=== PATIENT | male | born 1935 ===

== ENCOUNTER 2017-11-02 16:39 | Emergency (ER) | payer MEDICARE ==
[2017-11-02 17:37] LABS: VENOUS BLOOD GAS BASE EXCESS 3.5 mmol/L (0.0-2.0); VENOUS BLOOD GAS PCO2 40 mmHg (40-60); VENOUS BLOOD GAS PO2 30 mm/Hg (30-55); VENOUS BLOOD PH 7.45 (7.32-7.43)
[2017-11-02 17:47] LABS: BASO # 0.1 K/uL (0.0-0.2); BASO % 0.8 % (0.0-2.0); EOS # 0.2 K/uL (0.0-0.7); EOS % 2.9 % (0.0-4.0); HEMOGLOBIN 7.9 g/dL (12.0-18.0); LYMPH # 0.6 K/uL (1.0-4.3); LYMPH % 7.4 % (20.0-40.0); MEAN CELL VOLUME 79.4 fl (80.0-94.0); MEAN CORPUSCULAR HEMOGLOBIN 24.3 pg (27.0-31.0); MEAN CORPUSCULAR HGB CONC 30.6 g/dL (33.0-37.0); MEAN PLATELET VOLUME 7.9 fl (7.2-11.7); MONO # 0.6 K/uL (0.0-0.8); MONO % 7.5 % (0.0-10.0); NEUT # 6.7 K/uL (1.8-7.0); NEUT % 81.4 % (50.0-75.0); PLATELET COUNT 207 K/uL (130-400); RBC 3.26 Mil/uL (4.40-5.90); RED CELL DISTRIBUTION WIDTH 28.8 % (11.5-14.5); WHITE BLOOD COUNT 8.3 K/uL (4.8-10.8)
[2017-11-02 17:52] LABS: INR 1.4 (0.9-1.2); PROTHROMBIN TIME 15.1 Seconds (9.8-13.1)
[2017-11-02 17:53] LABS: PARTIAL THROMBOPLASTIN TIME 32.9 Seconds (25.6-37.1)
[2017-11-02 17:55] LABS: BLOOD UREA NITROGEN 15 mg/dl (9-20); CALCIUM 8.6 mg/dL (8.4-10.2); GFR AFRICAN-AMERICAN > 60; GFR NON-AFRICAN AMERICAN > 60
[2017-11-02 18:03] LABS: B-TYPE NATRIURETIC PEPTIDE 3740 pg/ml (0-900)
--- NOTE | 2017-11-02 18:03 | ED PDOC ---
HPI: Chest Pain Time Seen by Provider: 11/02/17 16:58 Chief Complaint (Nursing): Pacemaker Problem Chief Complaint (Provider): Pacemaker Problem History Per: Patient History/Exam Limitations: no limitations Onset/Duration Of Symptoms: Hrs (x1) Current Symptoms Are (Timing): Still Present Additional Complaint(s): Bernardo Lind is a 82 year old male with a past medical history of coronary artery disease, hypertension, CABG, and pacemaker placement who is presenting to the ED with complaints of swelling to the pacemaker site, noted one hour prior to arrival. Patient states that he was sitting watching a baseball game and noticed swelling on side of pacemaker site on the left chest. He reports that his pacemaker was placed [address] Hill at [facility]. Patient denies any pain, fever, cough, chest pain, shortness of breath , shock, or palpitations. He offers no other medical complaints at this time. PMD: Dr. Medina Watch Repair Technician: Dr. Leach - Risk Factors TAD Risk Factors: Pos: Hypertension Past Medical History Reviewed: Historical Data, Nursing Documentation, Vital Signs Vital Signs: Last Vital Signs Temp 98.1 F 11/02/17 22:22 Pulse 70 11/02/17 22:22 Resp 16 11/02/17 22:22 BP 144/75 11/02/17 22:22 Pulse Ox 94 L 11/02/17 22:22 - Medical History PMH: Cardia Arrhythmia, HTN, Hypercholesterolemia - Surgical History Surgical History: CABG, Pacemaker - Family History Family History: States: Unknown Family Hx - Social History Current smoker - smoking cessation education provided: No Alcohol: None Drugs: Denies - Home Medications Home Medications: Ambulatory Orders Medication Instructions Recorded Clindamycin [Cleocin] 300 mg PO TID 10 Days cap 11/02/17 - Allergies Allergies/Adverse Reactions: Allergies Allergy/AdvReac Type Severity Reaction Status Date / Time Sulfa (Sulfonamide Allergy RASH Verified 11/02/17 16:45 Antibiotics) Review of Systems ROS Statement: Except As Marked, All Systems Reviewed And Found Negative Constitutional: Negative for: Fever Cardiovascular: Positive for: Edema (to pacemaker site). Negative for: Chest Pain, Palpitations, Other (shock) Respiratory: Negative for: Cough, Shortness of Breath Physical Exam - Reviewed Nursing Documentation Reviewed: Yes Vital Signs Reviewed: Yes - Physical Exam Appears: Positive for: Non-toxic, No Acute Distress Head Exam: Positive for: ATRAUMATIC, NORMAL INSPECTION, NORMOCEPHALIC Skin: Positive for: Normal Color, Warm, DRY Eye Exam: Positive for: EOMI, Normal appearance, PERRL ENT: Positive for: Normal ENT Inspection Neck: Positive for: Normal, Painless ROM Cardiovascular/Chest: Positive for: Regular Rate, Rhythm, Chest Non Tender, Edema (to pacemkaer site), Other (pacemaker noted, no discharge or erythema). Negative for: Murmur Respiratory: Positive for: Normal Breath Sounds. Negative for: Respiratory Distress Gastrointestinal/Abdominal: Positive for: Normal Exam, Soft. Negative for: Tenderness Back: Positive for: Normal Inspection Extremity: Positive for: Normal ROM. Negative for: Deformity, Swelling Neurologic/Psych: Positive for: Alert, Oriented. Negative for: Motor/Sensory Deficits - Laboratory Results Result Diagrams: 11/02/17 17:30 11/02/17 17:30 - ECG O2 Sat by Pulse Oximetry: 94 (RA) Medical Decision Making Medical Decision Making: Time: 17:18 Impression: swelling of pacemaker site, fever Differentials: infection of pacemaker site, pneumonia, delayed post-operative bleeding Plan: --Blood Type and Screen --Venuous Blood Gas, Shock Panel --EKG --B-Type Natriuretic Peptide --BMP --CBC --PTT --Coag --Chest X-Ray --Blood Culture Rule out pneumonia and sepsis. Fever noted upon arrival to the ED. 19:00 Patient is signed out to Dr. Denson pending chest x-Ray, reevaluation, and final disposition. Scribe Attestation: Documented by Nuha Mendez, acting as a scribe for Adrian Armendariz MD. Provider Scribe Attestation: All medical record entries made by the Scribe were at my direction and personally dictated by me. I have reviewed the chart and agree that the record accurately reflects my personal performance of the history, physical exam, medical decision making, and the department course for this patient. I have also personally directed, reviewed, and agree with the discharge instructions and disposition. Disposition - Clinical Impression Clinical Impression: Swelling - Patient ED Disposition Is Patient to be Admitted: No Doctor Will See Patient In The: Office Counseled Patient/Family Regarding: Studies Performed, Diagnosis, Need For Followup - Disposition Referrals: Jeff Leach MD [Staff Provider] - Stanton Medina MD [Staff Provider] - Dickson Hill MD [Medical Doctor] - Disposition: Routine/Home Disposition Time: 19:00 Condition: STABLE Additional Instructions: Por favor, siga con el Dr. Medina el . Si desarrolla fiebre talon, empeoramiento de la hinchazn, enrojecimiento o cualquier otro sntoma preocupante, regrese de inmediato a la viraj de emergencias. Prescriptions: Clindamycin [Cleocin] 300 mg PO TID 10 Days cap Instructions: Swelling Print Language: [place] CITIZ[place] Patient Signed Over To: Xu Denson
[2017-11-02 18:21] LABS: ANISOCYTOSIS SLIGHT; BANDS 1 % (0-2); BASOPHIL 2 % (0-2); EOSINOPHIL 2 % (0-7); HYPOCHROMIC SLIGHT; LYMPHOCYTE 4 % (20-50); MICROCYTOSIS SLIGHT; MONOCYTE 3 % (0-10); NEUTROPHIL 88 % (42-75); PLATELET ESTIMATE NORMAL (NORMAL); POIKILOCYTOSIS SLIGHT; TARGET CELLS SLIGHT; TOTAL CELLS COUNTED 100
[2017-11-02 18:22] LABS: LARGE PLATELETS PRESENT; OVALOCYTES SLIGHT; SPHEROCYTES SLIGHT; TEARDROP CELLS SLIGHT
[2017-11-02] MEDS ORDERED: Iohexol 300 100 ML IJ ONE (19:24)
[2017-11-02 20:23] VITALS: RESP 16
--- NOTE | 2017-11-02 21:05 | ED PDOC ---
"- Laboratory Results Result Diagrams: 11/02/17 17:30 11/02/17 17:30 - ECG O2 Sat by Pulse Oximetry: 95 (RA) Medical Decision Making Medical Decision Making: Time: 19:00 Patient endorsed to me by Dr. Armendariz pending CT and disposition. 22:00 EXAM: CT Chest With Intravenous Contrast CLINICAL HISTORY: 82 years old, male; Signs and symptoms; Other: Swelling at pacemaker site; Prior surgery; Surgery date: <1 month; Surgery type: Pacemaker insertion 8 days ago. Cabg; Additional info: Chest wall swelling pacemaker site TECHNIQUE: Axial computed tomography images of the chest with intravenous contrast. All CT scans at this facility use at least one of these dose optimization techniques: automated exposure control; mA and/or kV adjustment per patient size (includes targeted exams where dose is matched to clinical indication); or iterative reconstruction. MIP reconstructed images were created and reviewed. Coronal and sagittal reformatted images were created and reviewed. CONTRAST: 90 mL of [id number] administered intravenously. COMPARISON: CR - CHEST TWO VIEWS (PA/LAT) 2017-11-02 17:16 FINDINGS: Lungs: The central airways are patent. Diffuse smooth interlobular septal thickening. Diffuse peribronchial vascular groundglass opacities. Trace compressive atelectasis within the right lower lobe dependently. As you linear left upper lobe opacity likely representing subsegmental atelectasis or scarring. 2 mm right upper lobe solid pulmonary nodule of (axial image 39). Pleural space: Moderate-sized right and small left pleural effusions. No pneumothorax. Heart: Left atrial enlargement. Status post coronary artery bypass graft. Right atrium and right ventricle. No significant pericardial effusion. Thyroid: Heterogeneous thyroid gland with 9 mm hypodense nodule within the left thyroid lobe. Bones/joints: Median sternotomy wires. Osseous demineralization. Diffuse thoracic spondylosis. No acute osseous abnormality. No dislocation. Soft tissues: Mild soft tissue swelling anterior to the left chest wall battery pack without discrete fluid collection. Vasculature: Enlargement of the main pulmonary artery measuring 3.6 cm in transverse axial dimension. No filling defects within the central, segmental, or visualized subsegmental pulmonary arteries. The aorta demonstrates moderate atherosclerotic calcification. SHAINA ZHU | Preliminary Radiology Report PATIENT SERVICES COORDINATOR (QA) DISCREPANCY? If there is a discrepancy between the preliminary and final interpretation, please notify [facility] via [email or web address]. If you do not have access to our QA portal, call our QA team at [phone] CONFIDENTIALITY STATEMENT This report is intended only for the use of the referring physician, and only in accordance with law, If you received this in error, call [phone] Page 2 of 2 Lymph nodes: Multiple prominent mediastinal lymph nodes are present measuring up to 13 mm in the right paratracheal region and 19 mm in the subcarinal region. Prominent hilar lymph nodes are also present measuring up to 10 mm on the right and 8mm on the left. Liver: The liver is normal in appearance. Gallbladder and bile ducts: Large lamellated gallstones within the imaged gallbladder. Pancreas: There is diffuse, benign fatty infiltration of the pancreas. Spleen: The spleen is normal. Adrenals: Nodular thickening of the both adrenal glands. 2.0 cm fat attenuation lesion within the left adrenal gland consistent with a myelolipoma. Kidneys and ureters: 10 mm stone within the imaged posterior left renal pelvis. IMPRESSION: 1. Pacemaker left chest wall battery pack and surrounding soft tissue swelling. No large associated fluid collection. This could represent postprocedural edema or a small hematoma. 2. No pulmonary embolism. 3. Status post coronary artery bypass graft with extensive calcific atherosclerosis of the [place] coronary arteries. 4. Left atrium enlargement. 5. Moderate-sized right and small left pleural effusions. 6. Pulmonary parenchymal findings suggestive of cardiogenic pulmonary edema to include peribronchial vascular groundglass opacities in smooth interlobular septal thickening. 7. Right upper lobe solid pulmonary nodule measuring 2 mm. For low-risk patients , no follow-up is necessary. For high-risk patients (smoking history or other known risk factors) an optional chest CT at 12 months could be performed. 8. Enlargement of the main pulmonary artery suggestive of pulmonary hypertension. 9. Cholelithiasis. 10. Hypodense left thyroid nodule measuring 9 mm. No follow-up is necessary. 11. Nonspecific mediastinal adenopathy, likely reactive on the basis of the pulmonary edema and pleural effusions. 12. Nephrolithiasis with 10 mm stone within the imaged posterior left renal pelvis. 13. 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 14. Other chronic findings as detailed above. Thank you for allowing us to participate in the care of your patient. Dictated and Authenticated by: Wan Perez DO 11/02/2017 8:48 PM Eastern Time ([place] & [place]) Case was discussed with Dr. Leach who recommended consultation with Dr. Hill, duplication specialist, call was placed. Page was placed to Dr. Barry as well, primary care physician. Patient comfortable, vitals stable at this time. 10:10PM Case discussed with Dr. Barry who states that if patient is stable, can be discharged with PO ABx and to followup with him in the office on Saturday. All results explained to patient who verbalizes understanding, return precautions were given including high fevers, worsening swelling, erythema, or other concerning symptoms. Patient BP 150/90, afebrile, well appearing, affable and pleasant, steady gait. Discharged in good condition. Scribe Attestation: Documented by Nuha Mendez, acting as a scribe for Xu Denson MD. Provider Scribe Attestation: All medical record entries made by the Scribe were at my direction and personally dictated by me. I have reviewed the chart and agree that the record accurately reflects my personal performance of the history, physical exam, medical decision making, and the department course for this patient. I have also personally directed, reviewed, and agree with the discharge instructions and disposition. Disposition - Clinical Impression Clinical Impression: Swelling - POA Present On Arrival: None - Disposition Referrals: Stanton Medina MD [Staff Provider] - Dickson Hill MD [Medical Doctor] - Jeff Leach MD [Staff Provider] - Disposition: Routine/Home Disposition Time: 22:18 Condition: GOOD Additional Instructions: Por favor, siga con el Dr. Medina el . Si desarrolla fiebre talon, empeoramiento de la hinchazn, enrojecimiento o cualquier otro sntoma preocupante, regrese de inmediato a la viraj de emergencias. Prescriptions: Clindamycin [Cleocin] 300 mg PO TID 10 Days cap Instructions: Swelling Forms: [facility] (Mozambican) Print Language: VENEZUELAN"
[2017-11-02] MEDS ORDERED: Clindamycin ORAL SUSP 75 MG/5 ML PO STA (22:15)
[2017-11-02 22:24] VITALS: BP 144/75; PULSE 70; TEMP 98.1; O2SAT 94
--- NOTE | 2017-11-03 11:25 | CT ---
Date of service: 11/02/2017 PROCEDURE: CT Chest with contrast HISTORY: chest wall swelling pacemaker site COMPARISON: None. TECHNIQUE: Contiguous axial images were obtained through the chest with intravenous contrast enhancement. Sagittal and coronal reconstructions were performed. IV contrast: 90 mL Omnipaque 300 Radiation dose (DLP): 687.34 mGy-cm. This CT exam was performed using one or more of the following dose reduction techniques: Automated exposure control, adjustment of the mA and/or kV according to patient size, and/or use of iterative reconstruction technique. FINDINGS: LUNGS: Linear scar/ atelectasis right lower lobe and left upper lobe. Minimal right basilar compressive atelectasis secondary to pleural effusion. Vague patchy ground-glass opacity the diffusely common nonspecific. . Rule out pneumonia. Followup. MEDIASTINUM: Unremarkable thoracic aorta. No aneurysm or dissection. Normal size heart. Status post CABG. Main pulmonary artery unremarkable. No vascular congestion. No significant lymphadenopathy. 9 mm nodule in left lobe of thyroid. Recommend correlation with thyroid ultrasound examination. PLEURA: Small right pleural effusion. Trace left pleural effusion. No pneumothorax. BONES: No fracture. No destructive lesion. UPPER ABDOMEN: 2.3 cm left adrenal myelo lipoma measuring -58 Hounsfield units. No right adrenal mass. Cholelithiasis. No evidence of cholecystitis. Very mild perihepatic ascites. 2 mm left upper pole renal calculus. OTHER FINDINGS: Status post left pacemaker insertion in left anterior chest wall. There is mild enlargement of the left pectoralis major and pectoralis minor muscles. This may reflect edema or intramuscular hemorrhage. There is no patti hematoma or fluid collection identified. IMPRESSION: Left chest wall pacemaker with enlargement of left pectoralis major and minor muscles. This may reflect intramuscular hemorrhage but there is no patti hematoma identified. Small right pleural effusion and trace left pleural effusion. No focal consolidation. Diffuse patchy ground-glass opacity, nonspecific. Doubt cardiogenic pulmonary edema. . . Cholelithiasis. Left adrenal myelo lipoma. Left thyroid nodule. Correlate with ultrasound. Mild ascites. The preliminary findings for this examination were reported by [facility] at 8:48 p.m. on 11/02/2017. There is some discordance of this report with the preliminary findings.
--- NOTE | 2017-11-03 13:56 | CARD ---
APPROVED REPORT Date of service: 11/02/2017 EKG Measurement Heart [id number] <Conclusion> Normal sinus rhythm Right bundle branch block Left anterior fascicular block Bifascicular block Abnormal ECG
--- NOTE | 2017-11-03 16:03 | RAD ---
Date of service: 11/02/2017 HISTORY: pacemaker COMPARISON: No prior. TECHNIQUE: Chest PA and lateral FINDINGS: LUNGS: No active pulmonary disease. PLEURA: Small right pleural effusion. No left pleural effusion. No pneumothorax. CARDIOVASCULAR: Normal heart size. Permanent pacemaker. Sternotomy wires. Likely prior CABG. OSSEOUS STRUCTURES: No significant abnormalities. VISUALIZED UPPER ABDOMEN: Normal. OTHER FINDINGS: None. IMPRESSION: Small right pleural effusion. No infiltrate.
== END 2017-11-02 22:26 | disposition home or self-care (01) ==
LOC: H.ER 16:39
DX: R22.2 Localized swelling, mass and lump, trunk (principal); Z95.0 Presence of cardiac pacemaker; I25.10 Atherosclerotic heart disease of native coronary artery without angina pectoris; E04.1 Nontoxic single thyroid nodule; E78.00 Pure hypercholesterolemia, unspecified; I10 Essential (primary) hypertension; I25.810 Atherosclerosis of coronary artery bypass graft(s) without angina pectoris; N20.0 Calculus of kidney
CPT/HCPCS: 71046; 71260; 80048; 82803; 83880; 85025; 85610; 85730; 86850; 86900; 87040; 93005; 96374; 99283; J1940; Q9967

== ENCOUNTER 2017-11-07 17:19 | Inpatient (IN) | payer MEDICARE ==
--- NOTE | 2017-11-07 17:58 | RAD ---
Date of service: 11/07/2017 HISTORY: Severe anemia COMPARISON: 11/02/2017 FINDINGS: LUNGS: Pulmonary vascular congestion without focal pulmonary abnormality PLEURA: Stable right pleural effusion CARDIOVASCULAR: Cardiomegaly/mild CHF. Position/ configuration of pacemaker device: Satisfactory. OSSEOUS STRUCTURES: No significant abnormalities. VISUALIZED UPPER ABDOMEN: Normal. OTHER FINDINGS: None. IMPRESSION: Cardiomegaly/acute CHF. This represents a new finding compared to the prior chest radiograph
--- NOTE | 2017-11-07 18:03 | ED PDOC ---
HPI: General Adult Time Seen by Provider: 11/07/17 17:34 Chief Complaint (Nursing): Abnormal Labs Chief Complaint (Provider): Anemia History Per: Patient History/Exam Limitations: no limitations Onset/Duration Of Symptoms: Days (x1) Current Symptoms Are (Timing): Still Present Additional Complaint(s): 82 y/o male with a PMHx of arrhythmia, HTN, high cholesterol, CABG, and pacemaker presenting for evaluation of anemia. Patient was referred to a import customer service manager for mild anemia and had blood work taken yesterday. Patient states he saw the import customer service manager today who told him his hemoglobin is too low and he should present to the ER for evaluation. Patient reports dyspnea with exertion, but otherwise denies any chest pain, fainting episodes, near fainting episodes, melena, hematochezia, epistaxis, or dental bleeding. Patient was seen in this facility 5 days ago for evaluation of his pacemaker wound and at that time his hemoglobin was 7.9. Patient does not taken any blood thinners, but does taken Aspirin. He denies any fever, chills, and headache. He reports good appetite. PMD: Dr. Medina Generation Mechanic Helper: Dr. Jeff Leach Sleeve Ironer: Dr. Lolly Neri Past Medical History Reviewed: Historical Data, Nursing Documentation, Vital Signs Vital Signs: Last Vital Signs Temp 99.5 F 11/07/17 17:27 Pulse 63 11/07/17 21:11 Resp 18 11/07/17 21:34 BP 139/56 L 11/07/17 21:11 Pulse Ox 96 11/07/17 22:57 - Medical History PMH: Cardia Arrhythmia, HTN, Hypercholesterolemia - Surgical History Surgical History: CABG, Pacemaker - Family History Family History: States: Unknown Family Hx - Social History Current smoker - smoking cessation education provided: No Alcohol: None - Home Medications Home Medications: Ambulatory Orders Medication Instructions Recorded Clindamycin [Cleocin] 300 mg PO TID 10 Days cap 11/02/17 Albuterol Sulfate [Ventolin Hfa] 2 puff IH Q6 PRN 11/07/17 Aspirin [Ecotrin] 81 mg PO Q48H 11/07/17 Brimonidine Tartrate [Alphagan P 1 drop EACHEYE Q12 11/07/17 0.1 % Ophth] Ibuprofen [Motrin Tab] 600 mg PO BID PRN 11/07/17 Isosorbide Mononitrate [Imdur] 120 mg PO DAILY 11/07/17 Lisinopril/Hydrochlorothiazide 1 tab PO DAILY 11/07/17 [Lisinopril-Hctz 20-25 mg Tab] MetFORMIN [glucoPHAGE] 1,000 mg PO BID 11/07/17 Multivitamin/Iron/Folic Acid 1 tab PO DAILY 11/07/17 [Centrum Complete Multivit Tab] Omeprazole [Omeprazole] 20 mg PO BID 11/07/17 Rosuvastatin Calcium [Crestor] 10 mg PO DAILY 11/07/17 SITagliptin [Januvia] 100 mg PO DAILY 11/07/17 Tamsulosin [Flomax] 0.4 mg PO BID 11/07/17 Zolpidem [Ambien] 5 mg PO HS PRN 11/07/17 amLODIPine [Norvasc] 5 mg PO DAILY 11/07/17 - Allergies Allergies/Adverse Reactions: Allergies Allergy/AdvReac Type Severity Reaction Status Date / Time Sulfa (Sulfonamide Allergy RASH Verified 11/07/17 17:32 Antibiotics) Review of Systems ROS Statement: Except As Marked, All Systems Reviewed And Found Negative Constitutional: Negative for: Fever, Chills ENT: Negative for: Other (epistaxis, dental bleed) Respiratory: Positive for: SOB with Exertion Gastrointestinal: Negative for: Melena, Hematochezia Neurological: Negative for: Headache, Other (syncope) Physical Exam - Reviewed Nursing Documentation Reviewed: Yes Vital Signs Reviewed: Yes - Physical Exam Appears: Positive for: Well, No Acute Distress Skin: Positive for: Warm, Dry, Pallor Eye Exam: Positive for: EOMI, PERRL, Other (conjunctival pallor) ENT: Positive for: Pharynx Is (clear) Neck: Positive for: Painless ROM, Supple Cardiovascular/Chest: Positive for: Regular Rate, Rhythm, Other (pacemaker wound at left upper anterior chest wall is clean, dry, and intact). Negative for: Murmur Respiratory: Positive for: Normal Breath Sounds. Negative for: Wheezing Gastrointestinal/Abdominal: Positive for: Soft. Negative for: Tenderness, Mass , Distended, Guarding Rectal: Positive for: Rectal Tone Is: (normal), Other (RN at bedside during exam ). Negative for: Mass Extremity: Positive for: Normal ROM. Negative for: Deformity Lymphatic: Negative for: Adenopathy Neurologic/Psych: Positive for: Alert. Negative for: Motor/Sensory Deficits - Laboratory Results Result Diagrams: 11/07/17 17:50 11/07/17 17:50 - ECG O2 Sat by Pulse Oximetry: 96 - Critical Care Total Time (In Min): 30 Documented Critical Care: Time excludes all time spent performint seperately billable procedures Medical Decision Making Medical Decision Makin:40 Impression: Anemia, mildly symptomatic. Differential diagnoses include, but are not limited to GI bleed, coagulopathy, hemolytic anemia, anemia of chronic disease, and renal failure. Plan: -Blood type and screen -VBG shock panel -CXR -EKG -BNP -CMP -Ferritin -Folate -Iron & TBC -Troponin I -Vitamin B12 -Urine dipstick -CBC w/ differential -PTT/Pt -environmental monitoring specialist -IV Insertion -Reevaluation EKG: paced rhythm at 60 with appropriate discordance of T waves Accession No. : [id number] Patient Name / ID : AUDRA MONTAGUE / [id number] Exam Date : 11/07/2017 17:38:01 ( Approved ) Study Comment : Sex / Age : M / 82Y Creator : Carlos Walker MD Dictator : Carlos Walker MD Buyer Internship : Urology Surgeon : Carlos Walker MD Approver2 : 17:56 Date of service: 11/07/2017 HISTORY: Severe anemia COMPARISON: 11/02/2017 FINDINGS: LUNGS: Pulmonary vascular congestion without focal pulmonary abnormality PLEURA: Stable right pleural effusion CARDIOVASCULAR: Cardiomegaly/mild CHF. Position/ configuration of pacemaker\AICD device: Satisfactory. OSSEOUS STRUCTURES: No significant abnormalities. VISUALIZED UPPER ABDOMEN: Normal. OTHER FINDINGS: None. IMPRESSION: Cardiomegaly/acute CHF. This represents a new finding compared to the prior chest radiograph 20:02 Hemocult is positive for blood. Discussed with Dr. Medina who reports that patient had similar presentation in the past and is noncompliant with follow up with GI and hematology. Patient has had blood transfusions and iron transfusions in the past despite patient denying this. Discussed with Dr. Aguero who is also familiar with the patient who advises Protonix 40 twice a day in addition to transfusion. Patient will likely have endoscopy tomorrow. Discussed with Dr. Angulo, hematology, who will come and see patient tomorrow morning as well. Discussed with Dr. Alas, hospitalist, for ICU placement for severe anemia and GI bleed in setting of severe cardiac disease. Discussed with patient and findings and plan of care. Scribe Attestation: Documented by Tyrell Conde, acting as a scribe for Arleth Solis MD. Provider Scribe Attestation: All medical record entries made by the Scribe were at my direction and personally dictated by me. I have reviewed the chart and agree that the record accurately reflects my personal performance of the history, physical exam, medical decision making, and the department course for this patient. I have also personally directed, reviewed, and agree with the discharge instructions and disposition. Disposition - Clinical Impression Clinical Impression: GI bleed, Anemia, Iron deficiency anemia - Patient ED Disposition Is Patient to be Admitted: Yes - Disposition Disposition Time: 18:30 Condition: CRITICAL - Pt Status Changed To: Hospital Disposition Of: Inpatient - Admit Certification Admit to Inpatient:: After my assessment, the patient will require hospitalization for at least two midnights. This is because of the severity of symptoms shown, intensity of services needed, and/or the medical risk in this patient being treated as an outpatient. - POA Present On Arrival: None
[2017-11-07 18:17] LABS: VENOUS BLOOD GAS BASE EXCESS 2.6 mmol/L (0.0-2.0); VENOUS BLOOD GAS PCO2 41 mmHg (40-60); VENOUS BLOOD GAS PO2 23 mm/Hg (30-55); VENOUS BLOOD PH 7.43 (7.32-7.43)
[2017-11-07 18:21] LABS: INR 1.4 (0.9-1.2); IRON 13 ug/dL (49-181); PARTIAL THROMBOPLASTIN TIME 31.4 Seconds (25.6-37.1); PROTHROMBIN TIME 15.2 Seconds (9.8-13.1)
[2017-11-07 18:27] LABS: BASO # 0.1 K/uL (0.0-0.2); BASO % 0.9 % (0.0-2.0); EOS # 0.1 K/uL (0.0-0.7); EOS % 2.4 % (0.0-4.0); LYMPH # 0.7 K/uL (1.0-4.3); LYMPH % 11.9 % (20.0-40.0); MEAN CELL VOLUME 80.2 fl (80.0-94.0); MEAN CORPUSCULAR HEMOGLOBIN 24.9 pg (27.0-31.0); MEAN PLATELET VOLUME 8.5 fl (7.2-11.7); MONO # 0.5 K/uL (0.0-0.8); MONO % 8.1 % (0.0-10.0); NEUT # 4.7 K/uL (1.8-7.0); NEUT % 76.7 % (50.0-75.0); NRBC % 1.1 % (0.0-0.0); RBC 2.06 Mil/uL (4.40-5.90); RED CELL DISTRIBUTION WIDTH 27.6 % (11.5-14.5); WHITE BLOOD COUNT 6.1 K/uL (4.8-10.8)
[2017-11-07 18:30] LABS: % IRON SATURATION 4 % (20-55); TOTAL IRON BINDING CAPACITY 312 ug/dL (250-450)
[2017-11-07 18:35] LABS: B-TYPE NATRIURETIC PEPTIDE 3480 pg/ml (0-900)
[2017-11-07 18:36] LABS: HEMOGLOBIN 5.1 g/dL (12.0-18.0)
[2017-11-07 18:58] LABS: ALB/GLOB RATIO 1.1 (1.0-2.1); ALBUMIN 3.3 g/dL (3.5-5.0); ALT/SGPT 31 U/L (21-72); AST/SGOT 35 U/L (17-59); BLOOD UREA NITROGEN 24 mg/dl (9-20); CALCIUM 8.2 mg/dL (8.4-10.2); FERRITIN 93.4 ng/Ml (17.9-464); GFR NON-AFRICAN AMERICAN 58
--- NOTE | 2017-11-07 20:24 | CP.PCM.CON ---
History of Present Illness - History of Present Illness History of Present Illness: Reason for Consult: severe acute blood loss anemia HPI: 82 PMH HTN, HLD, DM, BPH, arrhythmia, PPM, CAD s/p CABG, presents from his hematologists office for low H/H, now 5.16.5. 5 days ago he was evaluated here at [facility], Hgb 7.9. He admits to some dyspnea on exertion, no cp, lightheadedness, near/syncope, melena, hematochezia, hematemesis. Pt on ASA [id number], and is currently awake, alert, oriented. Per his PCP, he has had several episodes of GIB, however pt denies this. H/H 5./16.5, CXR: cardiomegaly and acute CHF. Elevated BUN, HD stable, BP 139/61, HR 61, afebrile , no acute distress. In ED, 2 units PRBC ordered with lasix in between, Hematology and GI consulted, Drs. Angulo and Mora. Plan for EGD tomorrow, protonix 40 IVP Q12. NPO, IV hydralazine for BP control. ISS for glucose control. ROS: per HPI all other systems reviewed and negative PMD: Dr. Medina Book Trimmer: Dr. Jeff Leach Bead Wire Insulator: Dr. Lolly Neri Past Patient History - Past Social History Alcohol: None - CARDIAC Hx Cardia Arrhythmia: Yes Hx Hypercholesterolemia: Yes Hx Hypertension: Yes Hx Pacemaker: Yes - ENDOCRINE/METABOLIC Hx Diabetes Mellitus Type 2: Yes - PSYCHIATRIC Hx Substance Use: No - SURGICAL HISTORY Hx Coronary Artery Bypass Graft: Yes Meds Allergies/Adverse Reactions: Allergies Allergy/AdvReac Type Severity Reaction Status Date / Time Sulfa (Sulfonamide Allergy RASH Verified 11/07/17 17:32 Antibiotics) - Medications Medications: Current Medications Pantoprazole Sodium (Protonix Inj) 40 mg IVP Q12 PRATIK Physical Exam - Constitutional Appears: Non-toxic, No Acute Distress - Head Exam Head Exam: ATRAUMATIC, NORMOCEPHALIC - Eye Exam Eye Exam: EOMI, Normal appearance, PERRL - ENT Exam ENT Exam: Mucous Membranes Moist, Normal Oropharynx - Respiratory Exam Respiratory Exam: Clear to Auscultation Bilateral, NORMAL BREATHING PATTERN - Cardiovascular Exam Cardiovascular Exam: RRR, +S1, +S2 - GI/Abdominal Exam GI & Abdominal Exam: Normal Bowel Sounds, Soft. absent: Mass, Organomegaly, Tenderness - Extremities Exam Extremities exam: Positive for: normal capillary refill, pedal pulses present - Back Exam Back exam: absent: CVA tenderness (L), CVA tenderness (R) - Neurological Exam Neurological exam: Alert, Oriented x3 - Psychiatric Exam Psychiatric exam: Normal Affect, Normal Mood - Skin Skin Exam: Dry, Warm Results - Vital Signs Recent Vital Signs: Last Vital Signs Temp 99.5 F 11/07/17 17:27 Pulse 61 11/07/17 19:34 Resp 23 11/07/17 19:34 BP 139/61 11/07/17 19:34 Pulse Ox 96 11/07/17 20:04 - Labs Result Diagrams: 11/07/17 17:50 11/07/17 17:50 Labs: Laboratory Results - last 24 hr 11/07/17 11/07/17 11/07/17 17:50 17:50 17:50 WBC 6.1 RBC 2.06 L Hgb 5.1 L* D Hct 16.5 L MCV 80.2 MCH 24.9 L MCHC 31.0 L RDW 27.6 H Plt Count 271 MPV 8.5 Neut % (Auto) 76.7 H Lymph % (Auto) 11.9 L [place] % (Auto) 8.1 Eos % (Auto) 2.4 Baso % (Auto) 0.9 Neut # (Auto) 4.7 Lymph # (Auto) 0.7 L [place] # (Auto) 0.5 Eos # (Auto) 0.1 Baso # (Auto) 0.1 PT INR APTT pO2 VBG pH VBG pCO2 VBG HCO3 VBG Total CO2 VBG O2 Sat (Calc) VBG Base Excess VBG Potassium Glucose Lactate FiO2 Sodium 144 Potassium 3.8 Chloride 107 Carbon Dioxide 24 Anion Gap 17 BUN 24 H Creatinine 1.2 Est GFR ( Amer) > 60 Est GFR (Non-Af Amer) 58 Random Glucose 142 H Calcium 8.2 L Iron 13 L TIBC 312 % Saturation 4 L Ferritin 93.4 Total Bilirubin 0.5 AST 35 ALT 31 Alkaline Phosphatase 95 Troponin I 0.0340 NT-Pro-B Natriuret Pep 3480 H Total Protein 6.3 Albumin 3.3 L Globulin 3.1 Albumin/Globulin Ratio 1.1 Vitamin B12 325 Venous Blood Potassium Blood Type Antibody Screen Crossmatch BBK History Checked 11/07/17 11/07/17 11/07/17 17:50 17:50 17:52 WBC RBC Hgb Hct MCV MCH MCHC RDW Plt Count MPV Neut % (Auto) Lymph % (Auto) [place] % (Auto) Eos % (Auto) Baso % (Auto) Neut # (Auto) Lymph # (Auto) [place] # (Auto) Eos # (Auto) Baso # (Auto) PT 15.2 H INR 1.4 H APTT 31.4 pO2 23 L VBG pH 7.43 VBG pCO2 41 VBG HCO3 26.2 VBG Total CO2 28.5 H VBG O2 Sat (Calc) 40.1 VBG Base Excess 2.6 H VBG Potassium 3.6 Glucose 155 H Lactate 2.1 FiO2 21.0 Sodium 141.0 Potassium Chloride 110.0 H Carbon Dioxide Anion Gap BUN Creatinine Est GFR ( Amer) Est GFR (Non-Af Amer) Random Glucose Calcium Iron TIBC % Saturation Ferritin Total Bilirubin AST ALT Alkaline Phosphatase Troponin I NT-Pro-B Natriuret Pep Total Protein Albumin Globulin Albumin/Globulin Ratio Vitamin B12 Venous Blood Potassium 3.6 Blood Type O POSITIVE Antibody Screen Negative Crossmatch See Detail BBK History Checked Patient has bt Assessment & Plan - Assessment and Plan (Free Text) Plan: 82 PMH HTN, HLD, DM, BPH, arrhythmia, PPM, CAD s/p CABG, presents from his hematologists office for low H/H, now 5./16.5. 5 days ago he was evaluated here at [facility], Hgb 7.9. He admits to some dyspnea on exertion, no cp, lightheadedness, near/syncope, melena, hematochezia, hematemesis. Pt on ASA [id number], and is currently awake, alert, oriented. Per his PCP, he has had several episodes of GIB, however pt denies this. H/H 5./16.5, CXR: cardiomegaly and acute CHF. Elevated BUN, HD stable, BP 139/61, HR 61, afebrile , no acute distress. In ED, 2 units PRBC ordered with lasix in between, Hematology and GI consulted, Drs. Angulo and Mora. Plan for EGD tomorrow, protonix 40 IVP Q12. NPO, IV hydralazine for BP control. ISS for glucose control. Acute Blood Loss Anemia Acute Gastrointestinal Bleed currently HD stable, BP 139/61, HR 61 2 units PRBC ordered with lasix in between Hematology and GI consulted, Drs. Angulo and Mora Plan for EGD tomorrow, protonix 40 IVP Q12 NPO HTN DM continue antihypertensive control via IV hydralazine continue glucose control ISS mod, accuchecks VTE ppx SCDs
[2017-11-07] MEDS ORDERED: Potassium Ch 20mEq in D5-1/2NS 1,000 ML IV SCH (20:45)
[2017-11-07 21:40] LABS: FOLATE > 20.0 ng/mL
[2017-11-08 05:42] LABS: HEMOGLOBIN 6.7 g/dL (12.0-18.0); MEAN CORPUSCULAR HEMOGLOBIN 25.6 pg (27.0-31.0); MEAN CORPUSCULAR HGB CONC 31.3 g/dL (33.0-37.0); RBC 2.6 Mil/uL (4.40-5.90); RED CELL DISTRIBUTION WIDTH 24.9 % (11.5-14.5); WHITE BLOOD COUNT 8.9 K/uL (4.8-10.8)
[2017-11-08 05:43] LABS: BLOOD UREA NITROGEN 21 mg/dl (9-20); CALCIUM 8.8 mg/dL (8.4-10.2); GFR NON-AFRICAN AMERICAN > 60
[2017-11-08] MEDS: Insulin Lispro (humaLOG) 100 Units/ml Inj SC SCH ×4 (09:02→22:00)
[2017-11-08 12:34] LABS: HEMOGLOBIN 7.6 g/dL (12.0-18.0); MEAN CELL VOLUME 82.4 fl (80.0-94.0); MEAN CORPUSCULAR HEMOGLOBIN 25.9 pg (27.0-31.0); MEAN CORPUSCULAR HGB CONC 31.4 g/dL (33.0-37.0); RBC 2.95 Mil/uL (4.40-5.90); RED CELL DISTRIBUTION WIDTH 23.5 % (11.5-14.5); WHITE BLOOD COUNT 9.2 K/uL (4.8-10.8)
--- NOTE | 2017-11-08 12:36 | CP.PCM.CON ---
History of Present Illness - History of Present Illness History of Present Illness: 82 year old male with a history of DM, HTN, CAD s/p CABG, chronic anemia, presenting from his hematologists office after being found to have a hgb of 5. The patient is currently s/p 2U PRBC. He apparently has had GI bleeding in the past and is scheduled for capsule endoscopy next week. He has been following with his land surveying party chief Dr. Neri for iron infusions. He currently reports to feeling fine and wants to home. He denies fevers, chills, shortness of breath and chest pain. He denies seeing and abnormal bleeding and bruising. Past medical history: DM, HTN, CAD s/p CABG, anemia Past surgical historyL: CABG Family history: Denies hematologic and oncologic problems Social history: Former tobacco, denies alcohol, and illicit drug use. Allergies: Sulfa Review of systems: All remaining review of systems including HEENT, cardiovascular, respiratory, gastrointestinal, genitourinary, musculoskeletal, dermatologic, neurologic, and psychiatric are negative unless mentioned in the HPI. Past Patient History - Past Social History Alcohol: None - CARDIAC Hx Cardia Arrhythmia: Yes Hx Hypercholesterolemia: Yes Hx Hypertension: Yes Hx Pacemaker: Yes - PULMONARY Hx Respiratory Disorders: No - NEUROLOGICAL Hx Neurological Disorder: No - HEENT Hx HEENT Problems: No Hx Cataracts: Yes - RENAL Hx Chronic Kidney Disease: No - ENDOCRINE/METABOLIC Hx Diabetes Mellitus Type 2: Yes - HEMATOLOGICAL/ONCOLOGICAL Hx AIDS: No Hx Anemia: Yes Hx Bruising: No Hx Cancer: No Hx Chemotherapy: No Hx Cirrhosis: No Hx Gum Bleeding: No Hx Hemophilia: No Hx Hepatitis A: No Hx Hepatitis B: No Hx Hepatitis C: No Hx Human Immunodeficiency Virus (HIV): No Hx Leukemia: No Hx Metastesis: No Hx Shingles: No Hx Sickle Cell Disease: No Hx Unexplained Bleeding: No Hx von Willebrand's Disease: No - INTEGUMENTARY Hx Dermatological Problems: No - MUSCULOSKELETAL/RHEUMATOLOGICAL Hx Musculoskeletal Disorders: No Hx Falls: No - GASTROINTESTINAL Hx Gastrointestinal Disorders: No - GENITOURINARY/GYNECOLOGICAL Hx Genitourinary Disorders: No - PSYCHIATRIC Hx Psychophysiologic Disorder: No Hx Substance Use: No - SURGICAL HISTORY Hx Coronary Artery Bypass Graft: Yes - ANESTHESIA Hx Anesthesia: No Hx Anesthesia Reactions: No Hx Malignant Hyperthermia: No Has any member of the family had a problem w/ anesthesia?: No Meds Allergies/Adverse Reactions: Allergies Allergy/AdvReac Type Severity Reaction Status Date / Time Sulfa (Sulfonamide Allergy RASH Verified 11/07/17 17:32 Antibiotics) - Medications Medications: Current Medications Potassium Chloride/Dextrose/Sod Cl (Potassium Chl 20 Meq In D5-1/2ns) 1,000 mls @ 100 mls/hr IV .Q10H PRATIK Stop: 11/08/17 20:36 Last Admin: 11/08/17 09:07 Dose: 100 mls/hr Iron Sucrose 200 mg/ Sodium (Chloride) 110 mls @ 110 mls/hr IVPB ONCE ONE Stop: 11/08/17 13:31 Insulin Human Lispro (Humalog) 0 units SC ACHS PRATIK PRN Reason: Protocol Last Admin: 11/08/17 12:28 Dose: 3 unit Ondansetron HCl (Zofran Inj) 4 mg IVP Q6H PRN PRN Reason: Nausea/Vomiting Pantoprazole Sodium (Protonix Inj) 40 mg IVP Q12 PRATIK Last Admin: 11/08/17 09:03 Dose: 40 mg Physical Exam - Head Exam Head Exam: ATRAUMATIC - Eye Exam Eye Exam: Normal appearance - ENT Exam ENT Exam: Mucous Membranes Dry - Respiratory Exam Respiratory Exam: NORMAL BREATHING PATTERN - Cardiovascular Exam Cardiovascular Exam: +S1, +S2 - GI/Abdominal Exam GI & Abdominal Exam: Normal Bowel Sounds - Extremities Exam Extremities exam: Positive for: normal inspection - Neurological Exam Neurological exam: Oriented x3 - Psychiatric Exam Psychiatric exam: Normal Affect, Normal Mood - Skin Skin Exam: Warm Results - Vital Signs Recent Vital Signs: Last Vital Signs Temp 98.3 F 11/08/17 08:00 Pulse 67 11/08/17 09:00 Resp 14 11/08/17 09:00 BP 152/82 H 11/08/17 08:00 Pulse Ox 95 11/08/17 08:00 - Labs Result Diagrams: 11/08/17 05:09 11/08/17 05:09 Labs: Laboratory Results - last 24 hr 11/07/17 11/07/17 11/07/17 17:50 17:50 17:50 WBC 6.1 RBC 2.06 L Hgb 5.1 L* D Hct 16.5 L MCV 80.2 MCH 24.9 L MCHC 31.0 L RDW 27.6 H Plt Count 271 MPV 8.5 Neut % (Auto) 76.7 H Lymph % (Auto) 11.9 L [place] % (Auto) 8.1 Eos % (Auto) 2.4 Baso % (Auto) 0.9 Neut # (Auto) 4.7 Lymph # (Auto) 0.7 L [place] # (Auto) 0.5 Eos # (Auto) 0.1 Baso # (Auto) 0.1 PT INR APTT pO2 VBG pH VBG pCO2 VBG HCO3 VBG Total CO2 VBG O2 Sat (Calc) VBG Base Excess VBG Potassium Glucose Lactate FiO2 Sodium 144 Potassium 3.8 Chloride 107 Carbon Dioxide 24 Anion Gap 17 BUN 24 H Creatinine 1.2 Est GFR ( Amer) > 60 Est GFR (Non-Af Amer) 58 POC Glucose (mg/dL) Random Glucose 142 H Calcium 8.2 L Phosphorus Magnesium Iron 13 L TIBC 312 % Saturation 4 L Ferritin 93.4 Total Bilirubin 0.5 AST 35 ALT 31 Alkaline Phosphatase 95 Troponin I 0.0340 NT-Pro-B Natriuret Pep 3480 H Total Protein 6.3 Albumin 3.3 L Globulin 3.1 Albumin/Globulin Ratio 1.1 Vitamin B12 325 Folate > 20.0 Venous Blood Potassium Stool Occult Blood Blood Type Antibody Screen Crossmatch BBK History Checked 11/07/17 11/07/17 11/07/17 17:50 17:50 17:52 WBC RBC Hgb Hct MCV MCH MCHC RDW Plt Count MPV Neut % (Auto) Lymph % (Auto) [place] % (Auto) Eos % (Auto) Baso % (Auto) Neut # (Auto) Lymph # (Auto) [place] # (Auto) Eos # (Auto) Baso # (Auto) PT 15.2 H INR 1.4 H APTT 31.4 pO2 23 L VBG pH 7.43 VBG pCO2 41 VBG HCO3 26.2 VBG Total CO2 28.5 H VBG O2 Sat (Calc) 40.1 VBG Base Excess 2.6 H VBG Potassium 3.6 Glucose 155 H Lactate 2.1 FiO2 21.0 Sodium 141.0 Potassium Chloride 110.0 H Carbon Dioxide Anion Gap BUN Creatinine Est GFR ( Amer) Est GFR (Non-Af Amer) POC Glucose (mg/dL) Random Glucose Calcium Phosphorus Magnesium Iron TIBC % Saturation Ferritin Total Bilirubin AST ALT Alkaline Phosphatase Troponin I NT-Pro-B Natriuret Pep Total Protein Albumin Globulin Albumin/Globulin Ratio Vitamin B12 Folate Venous Blood Potassium 3.6 Stool Occult Blood Blood Type O POSITIVE Antibody Screen Negative Crossmatch See Detail BBK History Checked Patient has bt 11/07/17 11/08/17 11/08/17 18:45 00:14 05:09 WBC 8.9 RBC 2.60 L Hgb 6.7 L Hct 21.3 L MCV 82.0 MCH 25.6 L MCHC 31.3 L RDW 24.9 H Plt Count 294 MPV Neut % (Auto) Lymph % (Auto) [place] % (Auto) Eos % (Auto) Baso % (Auto) Neut # (Auto) Lymph # (Auto) [place] # (Auto) Eos # (Auto) Baso # (Auto) PT INR APTT pO2 VBG pH VBG pCO2 VBG HCO3 VBG Total CO2 VBG O2 Sat (Calc) VBG Base Excess VBG Potassium Glucose Lactate FiO2 Sodium Potassium Chloride Carbon Dioxide Anion Gap BUN Creatinine Est GFR ( Amer) Est GFR (Non-Af Amer) POC Glucose (mg/dL) 129 H Random Glucose Calcium Phosphorus Magnesium Iron TIBC % Saturation Ferritin Total Bilirubin AST ALT Alkaline Phosphatase Troponin I NT-Pro-B Natriuret Pep Total Protein Albumin Globulin Albumin/Globulin Ratio Vitamin B12 Folate Venous Blood Potassium Stool Occult Blood Positive H Blood Type Antibody Screen Crossmatch BBK History Checked 11/08/17 11/08/17 05:09 05:20 WBC RBC Hgb Hct MCV MCH MCHC RDW Plt Count MPV Neut % (Auto) Lymph % (Auto) [place] % (Auto) Eos % (Auto) Baso % (Auto) Neut # (Auto) Lymph # (Auto) [place] # (Auto) Eos # (Auto) Baso # (Auto) PT INR APTT pO2 VBG pH VBG pCO2 VBG HCO3 VBG Total CO2 VBG O2 Sat (Calc) VBG Base Excess VBG Potassium Glucose Lactate FiO2 Sodium 145 Potassium 4.1 Chloride 107 Carbon Dioxide 28 Anion Gap 14 BUN 21 H Creatinine 1.1 Est GFR ( Amer) > 60 Est GFR (Non-Af Amer) > 60 POC Glucose (mg/dL) 134 H Random Glucose 117 H Calcium 8.8 Phosphorus 3.3 Magnesium 1.9 Iron TIBC % Saturation Ferritin Total Bilirubin AST ALT Alkaline Phosphatase Troponin I NT-Pro-B Natriuret Pep Total Protein Albumin Globulin Albumin/Globulin Ratio Vitamin B12 Folate Venous Blood Potassium Stool Occult Blood Blood Type Antibody Screen Crossmatch BBK History Checked Assessment & Plan (1) Anemia Assessment and Plan: chronic GI blood loss; for capsule endoscopy as outpatient next week GI evaluation transfusion support for goal hgb minimum 8 will given a dose of Venofer given iron deficiency treatment as outpatient outpatient f/u with his land surveying party chief Dr. Neri Thank you for this interesting consult. Status: Acute
--- NOTE | 2017-11-08 14:02 | CP.PCM.CON ---
<Ruthann Connor - Last Filed: 11/08/17 14:28> History of Present Illness - History of Present Illness History of Present Illness: Initial PGY5 GI Consult Bernardo Lind is a 82M w/ hx of DM, HTN, CAD s/p CABG, chronic anemia, presenting from his hematologists office after being found to have a hgb of 5. Pt has recently had a colonoscopy and endoscopy in Mar 2017 and was told there was no sig source of bleeding. As per EMR, pt has a prior hx of GI bleed. Pt states that he follows with Dr. Neri for hem and is curently receiving iron transfusions. Denies any abd pain, rectal bleeding, or hematemsis. Pt notes that he is scheduled for capsule endoscopy in 30days. He currently reports to feeling fine and wants to home. He denies fevers, chills, shortness of breath and chest pain. He denies seeing and abnormal bleeding and bruising. Past medical history: DM, HTN, CAD s/p CABG, anemia Past surgical historyL: CABG Family history: Denies hematologic and oncologic problems Social history: Former tobacco, denies alcohol, and illicit drug use. ROS: 12 point ROS conducted, neg other than above Past Patient History - Past Social History Alcohol: None - CARDIAC Hx Cardia Arrhythmia: Yes Hx Hypercholesterolemia: Yes Hx Hypertension: Yes Hx Pacemaker: Yes - PULMONARY Hx Respiratory Disorders: No - NEUROLOGICAL Hx Neurological Disorder: No - HEENT Hx HEENT Problems: No Hx Cataracts: Yes - RENAL Hx Chronic Kidney Disease: No - ENDOCRINE/METABOLIC Hx Diabetes Mellitus Type 2: Yes - HEMATOLOGICAL/ONCOLOGICAL Hx AIDS: No Hx Anemia: Yes Hx Bruising: No Hx Cancer: No Hx Chemotherapy: No Hx Cirrhosis: No Hx Gum Bleeding: No Hx Hemophilia: No Hx Hepatitis A: No Hx Hepatitis B: No Hx Hepatitis C: No Hx Human Immunodeficiency Virus (HIV): No Hx Leukemia: No Hx Metastesis: No Hx Shingles: No Hx Sickle Cell Disease: No Hx Unexplained Bleeding: No Hx von Willebrand's Disease: No - INTEGUMENTARY Hx Dermatological Problems: No - MUSCULOSKELETAL/RHEUMATOLOGICAL Hx Musculoskeletal Disorders: No Hx Falls: No - GASTROINTESTINAL Hx Gastrointestinal Disorders: No - GENITOURINARY/GYNECOLOGICAL Hx Genitourinary Disorders: No - PSYCHIATRIC Hx Psychophysiologic Disorder: No Hx Substance Use: No - SURGICAL HISTORY Hx Coronary Artery Bypass Graft: Yes - ANESTHESIA Hx Anesthesia: No Hx Anesthesia Reactions: No Hx Malignant Hyperthermia: No Has any member of the family had a problem w/ anesthesia?: No Meds Allergies/Adverse Reactions: Allergies Allergy/AdvReac Type Severity Reaction Status Date / Time Sulfa (Sulfonamide Allergy RASH Verified 11/07/17 17:32 Antibiotics) - Medications Medications: Current Medications Potassium Chloride/Dextrose/Sod Cl (Potassium Chl 20 Meq In D5-1/2ns) 1,000 mls @ 100 mls/hr IV .Q10H PRATIK Stop: 11/08/17 20:36 Last Admin: 11/08/17 09:07 Dose: 100 mls/hr Insulin Human Lispro (Humalog) 0 units SC ACHS PRATIK PRN Reason: Protocol Last Admin: 11/08/17 12:28 Dose: 3 unit Ondansetron HCl (Zofran Inj) 4 mg IVP Q6H PRN PRN Reason: Nausea/Vomiting Pantoprazole Sodium (Protonix Inj) 40 mg IVP Q12 PRATIK Last Admin: 11/08/17 09:03 Dose: 40 mg Physical Exam - Constitutional Appears: Well, No Acute Distress - Head Exam Head Exam: ATRAUMATIC, NORMOCEPHALIC - Eye Exam Eye Exam: Normal appearance - ENT Exam ENT Exam: Mucous Membranes Moist, Normal Exam - Neck Exam Neck exam: Positive for: Normal Inspection - Respiratory Exam Respiratory Exam: Clear to Auscultation Bilateral, NORMAL BREATHING PATTERN. absent: Rales, Rhonchi, Wheezes, Respiratory Distress - Cardiovascular Exam Cardiovascular Exam: REGULAR RHYTHM, +S1, +S2 - GI/Abdominal Exam GI & Abdominal Exam: Normal Bowel Sounds, Soft. absent: Firm, Guarding, Hernia , Pulsatile Mass, Rebound, Rigid - Rectal Exam Rectal Exam: Deferred - Extremities Exam Extremities exam: Negative for: joint swelling - Neurological Exam Neurological exam: Alert, Oriented x3 - Skin Skin Exam: Dry, Intact, Normal Color, Warm Results - Vital Signs Recent Vital Signs: Last Vital Signs Temp 97.5 F L 11/08/17 13:57 Pulse 61 11/08/17 13:57 Resp 22 11/08/17 13:57 BP 155/56 H 11/08/17 13:57 Pulse Ox 96 11/08/17 13:57 - Labs Result Diagrams: 11/08/17 12:28 11/08/17 05:09 Labs: Laboratory Results - last 24 hr 11/07/17 11/07/17 11/07/17 17:50 17:50 17:50 WBC 6.1 RBC 2.06 L Hgb 5.1 L* D Hct 16.5 L MCV 80.2 MCH 24.9 L MCHC 31.0 L RDW 27.6 H Plt Count 271 MPV 8.5 Neut % (Auto) 76.7 H Lymph % (Auto) 11.9 L [place] % (Auto) 8.1 Eos % (Auto) 2.4 Baso % (Auto) 0.9 Neut # (Auto) 4.7 Lymph # (Auto) 0.7 L [place] # (Auto) 0.5 Eos # (Auto) 0.1 Baso # (Auto) 0.1 PT INR APTT pO2 VBG pH VBG pCO2 VBG HCO3 VBG Total CO2 VBG O2 Sat (Calc) VBG Base Excess VBG Potassium Glucose Lactate FiO2 Sodium 144 Potassium 3.8 Chloride 107 Carbon Dioxide 24 Anion Gap 17 BUN 24 H Creatinine 1.2 Est GFR ( Amer) > 60 Est GFR (Non-Af Amer) 58 POC Glucose (mg/dL) Random Glucose 142 H Calcium 8.2 L Phosphorus Magnesium Iron 13 L TIBC 312 % Saturation 4 L Ferritin 93.4 Total Bilirubin 0.5 AST 35 ALT 31 Alkaline Phosphatase 95 Troponin I 0.0340 NT-Pro-B Natriuret Pep 3480 H Total Protein 6.3 Albumin 3.3 L Globulin 3.1 Albumin/Globulin Ratio 1.1 Vitamin B12 325 Folate > 20.0 Venous Blood Potassium Stool Occult Blood Blood Type Antibody Screen Crossmatch BBK History Checked 11/07/17 11/07/17 11/07/17 17:50 17:50 17:52 WBC RBC Hgb Hct MCV MCH MCHC RDW Plt Count MPV Neut % (Auto) Lymph % (Auto) [place] % (Auto) Eos % (Auto) Baso % (Auto) Neut # (Auto) Lymph # (Auto) [place] # (Auto) Eos # (Auto) Baso # (Auto) PT 15.2 H INR 1.4 H APTT 31.4 pO2 23 L VBG pH 7.43 VBG pCO2 41 VBG HCO3 26.2 VBG Total CO2 28.5 H VBG O2 Sat (Calc) 40.1 VBG Base Excess 2.6 H VBG Potassium 3.6 Glucose 155 H Lactate 2.1 FiO2 21.0 Sodium 141.0 Potassium Chloride 110.0 H Carbon Dioxide Anion Gap BUN Creatinine Est GFR ( Amer) Est GFR (Non-Af Amer) POC Glucose (mg/dL) Random Glucose Calcium Phosphorus Magnesium Iron TIBC % Saturation Ferritin Total Bilirubin AST ALT Alkaline Phosphatase Troponin I NT-Pro-B Natriuret Pep Total Protein Albumin Globulin Albumin/Globulin Ratio Vitamin B12 Folate Venous Blood Potassium 3.6 Stool Occult Blood Blood Type O POSITIVE Antibody Screen Negative Crossmatch See Detail BBK History Checked Patient has bt 11/07/17 11/08/17 11/08/17 18:45 00:14 05:09 WBC 8.9 RBC 2.60 L Hgb 6.7 L Hct 21.3 L MCV 82.0 MCH 25.6 L MCHC 31.3 L RDW 24.9 H Plt Count 294 MPV Neut % (Auto) Lymph % (Auto) [place] % (Auto) Eos % (Auto) Baso % (Auto) Neut # (Auto) Lymph # (Auto) [place] # (Auto) Eos # (Auto) Baso # (Auto) PT INR APTT pO2 VBG pH VBG pCO2 VBG HCO3 VBG Total CO2 VBG O2 Sat (Calc) VBG Base Excess VBG Potassium Glucose Lactate FiO2 Sodium Potassium Chloride Carbon Dioxide Anion Gap BUN Creatinine Est GFR ( Amer) Est GFR (Non-Af Amer) POC Glucose (mg/dL) 129 H Random Glucose Calcium Phosphorus Magnesium Iron TIBC % Saturation Ferritin Total Bilirubin AST ALT Alkaline Phosphatase Troponin I NT-Pro-B Natriuret Pep Total Protein Albumin Globulin Albumin/Globulin Ratio Vitamin B12 Folate Venous Blood Potassium Stool Occult Blood Positive H Blood Type Antibody Screen Crossmatch BBK History Checked 11/08/17 11/08/17 11/08/17 05:09 05:20 12:28 WBC 9.2 RBC 2.95 L Hgb 7.6 L Hct 24.3 L MCV 82.4 MCH 25.9 L MCHC 31.4 L RDW 23.5 H Plt Count 311 MPV Neut % (Auto) Lymph % (Auto) [place] % (Auto) Eos % (Auto) Baso % (Auto) Neut # (Auto) Lymph # (Auto) [place] # (Auto) Eos # (Auto) Baso # (Auto) PT INR APTT pO2 VBG pH VBG pCO2 VBG HCO3 VBG Total CO2 VBG O2 Sat (Calc) VBG Base Excess VBG Potassium Glucose Lactate FiO2 Sodium 145 Potassium 4.1 Chloride 107 Carbon Dioxide 28 Anion Gap 14 BUN 21 H Creatinine 1.1 Est GFR ( Amer) > 60 Est GFR (Non-Af Amer) > 60 POC Glucose (mg/dL) 134 H Random Glucose 117 H Calcium 8.8 Phosphorus 3.3 Magnesium 1.9 Iron TIBC % Saturation Ferritin Total Bilirubin AST ALT Alkaline Phosphatase Troponin I NT-Pro-B Natriuret Pep Total Protein Albumin Globulin Albumin/Globulin Ratio Vitamin B12 Folate Venous Blood Potassium Stool Occult Blood Blood Type Antibody Screen Crossmatch BBK History Checked Assessment & Plan - Assessment and Plan (Free Text) Assessment: Bernardo Lind is a 82M w/ hx of DM, HTN, CAD s/p CABG, chronic anemia, presenting from his hematologists office after being found to have a hgb of 5 Normocytic Anemia Hx of GI bleed Plan: -keep hgb > 8 -maintain x2 IV access -pt refuses rectal exam and edoscopic procedures -s/p 2 untis PRBC, hgb 7.6, adequete response -would continue to observe -continue PPI IV 40mg BID -follow-up w/ hem.onc, out GI D/w Dr. Velazco <Francis Velazco - Last Filed: 11/25/17 11:28> Results - Vital Signs Recent Vital Signs: Last Vital Signs Temp 98.9 F 11/09/17 08:00 Pulse 77 11/09/17 08:36 Resp 23 11/09/17 08:00 BP 151/77 H 11/09/17 08:36 Pulse Ox 98 11/09/17 08:00 - Labs Result Diagrams: 11/09/17 05:30 11/09/17 05:30 Assessment & Plan - Assessment and Plan (Free Text) Assessment: patient seen and examined and agree with above Francis Velazco MD, PhD
[2017-11-08 21:05] LABS: HEMOGLOBIN 8.6 g/dL (12.0-18.0); MEAN CELL VOLUME 82.5 fl (80.0-94.0); MEAN CORPUSCULAR HEMOGLOBIN 26.2 pg (27.0-31.0); MEAN CORPUSCULAR HGB CONC 31.8 g/dL (33.0-37.0); RBC 3.28 Mil/uL (4.40-5.90); RED CELL DISTRIBUTION WIDTH 22.7 % (11.5-14.5); WHITE BLOOD COUNT 9.7 K/uL (4.8-10.8)
[2017-11-09 06:22] LABS: HEMOGLOBIN 8.5 g/dL (12.0-18.0); MEAN CELL VOLUME 83.1 fl (80.0-94.0); MEAN CORPUSCULAR HEMOGLOBIN 25.7 pg (27.0-31.0); RBC 3.32 Mil/uL (4.40-5.90); RED CELL DISTRIBUTION WIDTH 22.4 % (11.5-14.5); WHITE BLOOD COUNT 9.9 K/uL (4.8-10.8)
[2017-11-09 06:44] LABS: ALBUMIN 3.4 g/dL (3.5-5.0); ALT/SGPT 29 U/L (21-72); AST/SGOT 40 U/L (17-59); BLOOD UREA NITROGEN 13 mg/dl (9-20); CALCIUM 8.5 mg/dL (8.4-10.2); GFR NON-AFRICAN AMERICAN > 60
[2017-11-09 08:37] VITALS: BP 151/77; PULSE 77
[2017-11-09 09:38] VITALS: RESP 23; TEMP 98.9; O2SAT 98
--- NOTE | 2017-11-09 20:51 | CARD ---
APPROVED REPORT Date of service: 11/07/2017 EKG Measurement Heart [id number] <Conclusion> Ventricular paced rhythm Abnormal ECG
== END 2017-11-09 13:15 | disposition home or self-care (01) | DRG 378 ==
LOC: H.ER 17:19 → H.ERHOLD 18:51 → H.ICU/CCU 23:36
PROVIDERS: ADMIT Internal Medicine Pulmonary Disease; ATTEND Internal Medicine Pulmonary Disease
PROC: 30233N1 Transfusion of Nonautologous Red Blood Cells into Peripheral Vein, Percutaneous Approach (ICD-10-PCS; principal; 2017-11-08)
DX: K92.2 Gastrointestinal hemorrhage, unspecified (principal); D62 Acute posthemorrhagic anemia; E11.9 Type 2 diabetes mellitus without complications; E78.00 Pure hypercholesterolemia, unspecified; E78.5 Hyperlipidemia, unspecified; I11.0 Hypertensive heart disease with heart failure; I25.10 Atherosclerotic heart disease of native coronary artery without angina pectoris; I50.9 Heart failure, unspecified; N40.0 Benign prostatic hyperplasia without lower urinary tract symptoms; Z79.82 Long term (current) use of aspirin; Z87.891 Personal history of nicotine dependence; Z91.19 Patient's noncompliance with other medical treatment and regimen; Z95.0 Presence of cardiac pacemaker; Z95.1 Presence of aortocoronary bypass graft; H26.9 Unspecified cataract; Z79.84 Long term (current) use of oral hypoglycemic drugs; Z79.899 Other long term (current) drug therapy; R94.4 Abnormal results of kidney function studies; D50.9 Iron deficiency anemia, unspecified